=== PATIENT | female | born 1990 | race Caucasian/White ===

== ENCOUNTER → 2024-01-20 07:11 | Outpatient (REF) | payer OTHER, SELFPAY | LOC: PNTC 07:11 | PROVIDERS: ATTENDING PHYSICIAN Nurse Practitioner Family | DX: Z36.0 Encounter for antenatal screening for chromosomal anomalies (principal) | CPT/HCPCS: 76801 ==

== ENCOUNTER → 2024-02-11 07:56 | Outpatient (REF) | payer OTHER, SELFPAY | LOC: PNTC 07:56 | PROVIDERS: ATTENDING PHYSICIAN Nurse Practitioner Family | DX: Z36.0 Encounter for antenatal screening for chromosomal anomalies (principal); Z36.82 Encounter for antenatal screening for nuchal translucency | CPT/HCPCS: 76801; 76813 ==

== ENCOUNTER → 2024-04-06 08:07 | Outpatient (REF) | payer OTHER, SELFPAY | LOC: PNTC 08:07 | PROVIDERS: ATTENDING PHYSICIAN Nurse Practitioner Family | DX: Z34.00 Encounter for supervision of normal first pregnancy, unspecified trimester (principal) | CPT/HCPCS: 76805 ==

== ENCOUNTER 2024-08-22 20:35 | Inpatient (IN) | payer OTHER, SELFPAY ==
[2024-08-22 20:47] VITALS: BMI 33.3
[2024-08-22 21:06] VITALS: BP 135/84
[2024-08-22] MEDS: LR 1000 IV ×2 (21:40→23:28)
[2024-08-22 21:49] LABS: % Basophils 0.5 % (0-2); % Eosinophils 0.3 % (0-6); % Immature Granulocytes 2.7 % (0-0.5); % Monocytes 3.6 % (1.7-9.3); % Neutrophils 75.9 % (42.2-75.2); Absolute Basophils 0.1 10^3/uL (0-0.2); Absolute Immature Granulocytes 0.4 10^3/uL (0-0.05); Absolute Lymphocytes 2.5 10^3/uL (1.2-3.4); Absolute Monocytes 0.5 10^3/uL (0.1-0.6); Absolute Neutrophils 11.2 10^3/uL (1.4-6.5); Hematocrit 37.7 % (37.0-47.0); Mean Corp Hgb Conc. 34.5 g/dL (33.0-37.0); Mean Corpuscular Hgb 27.7 pg (27.0-31.0); Mean Corpuscular Volume 80.4 fL (81.0-99.0); Mean Platelet Volume 8.9 fL (7.4-10.4); Nucleated Red Blood Cells % 0 %; Platelet Count 263 10^3/uL (130-400); Red Blood Cell Count 4.69 10^6/uL (4.20-5.40); Red Cell Dist. Width 13.8 % (11.5-14.5); White Blood Cell Count 14.7 10^3/uL (4.8-10.8)
[2024-08-22] MEDS: SUBLIMAZE 100 MCG EPIDURAL (23:07)
[2024-08-22] MEDS: FENTANYL/BUPIVACAINE 100 EPIDURAL (23:10)
[2024-08-23] MEDS: PITOCIN 30 UNITS/NSS 500 ML IV (01:29)
[2024-08-23] MEDS: MOTRIN 600 MG PO ×4 (05:11→23:26)
[2024-08-23] MEDS: TYLENOL 650 MG PO ×4 (05:12→21:22)
[2024-08-24 04:43] LABS: Hematocrit 36.1 % (37.0-47.0)
[2024-08-24] MEDS: TYLENOL 650 MG PO (08:51)
[2024-08-24] MEDS: MOTRIN 600 MG PO (08:51)
[2024-08-25 12:04] LABS: Syphilis/T. pallidum Ab Reflex Negative (Negative)
== END 2024-08-24 17:08 | disposition home or self-care (01) | DRG 807 ==
LOC: LDRP 20:35
PROVIDERS: ADMITTING PHYSICIAN Student in an Organized Health Care Education/Training Program; FAMILY PHYSICIAN Physician Assistant Medical
PROC: 10E0XZZ Delivery of Products of Conception, External Approach (ICD-10-PCS; 2024-08-23)
PROC: 0KQM0ZZ Repair Perineum Muscle, Open Approach (ICD-10-PCS; 2024-08-23)
PROC: 10907ZC Drainage of Amniotic Fluid, Therapeutic from Products of Conception, Via Natural or Artificial Opening (ICD-10-PCS; 2024-08-23)
DX: O69.81X0 Labor and delivery complicated by cord around neck, without compression, not applicable or unspecified (principal); Z37.0 Single live birth; Z3A.40 40 weeks gestation of pregnancy; O70.1 Second degree perineal laceration during delivery
CPT/HCPCS: 36415; 85014; 85018; 85025; 86780; 86850; 86900; 86901